=== PATIENT | male | born 1975 | race Caucasian/White ===

== ENCOUNTER 2019-04-30 02:28 | Emergency (ER) | payer SELFPAY ==
[~2019-04-30] VITALS: Ht 170.2 cm; Wt 98.7 kg
[~2019-04-30 02:28] MED LIST: CEPH500C PO; IBUP-1542 PO; IBUP800T48 PO
[2019-04-30 02:35] VITALS: Ht 170.2 cm; Wt 98.7 kg
--- NOTE | 2019-04-30 03:58 | ERD ---
ER Documentation Chief Complaint Chief Complaint ABSCESS ON BACK OF HEAD HPI This is a 43 yo male patient who presents to the ER with c/o large abscess on back of head that he has tried to karley at home and has only gotten larger. No fevers, no neck pain, no other symptoms. No chronic medical problems. ROS All systems reviewed and are negative except as per history of present illness. Medications Home Meds Active Scripts Ibuprofen* (Motrin*) 600 Mg Tab, 600 MG PO Q6, #30 TAB Prov:APPLE MARTINEZ [employer] REPORTER 04/30/19 Cephalexin* (Cephalexin*) 500 Mg Capsule, 500 MG PO Q6 for cellulitis for 7 Days, #28 CAP Prov:APPLE MARTINEZ [facility] REPORTER 04/30/19 Ibuprofen* (Motrin*) 800 Mg Tab, 800 MG PO Q8 PRN for PAIN AND OR ELEVATED TEMP, #30 TAB Prov:SHERRY ROBISON [facility] REPORTER 03/24/16 Allergies Allergies: Coded Allergies: No Known Allergy (Unverified , 03/23/16) PMhx/Soc Medical and Surgical Hx: pt denies Surgical Hx History of Surgery: No Anesthesia Reaction: No Hx Neurological Disorder: No Hx Respiratory Disorders: No Hx Cardiac Disorders: No Hx Psychiatric Problems: No Hx Miscellaneous Medical Probl: Yes (DM) Hx Alcohol Use: No Hx Substance Use: No Hx Tobacco Use: Yes Smoking Status: Current every day smoker FmHx Family History: No diabetes, No coronary disease, No other Physical Exam Vitals Vital Signs Date Temp Pulse Resp B/P (MAP) Pulse Ox O2 O2 Flow FiO2 Time Delivery Rate 04/30/19 95.8 71 16 144/91 98 Room Air 05:57 (108) 04/30/19 98.7 80 19 154/100 99 02:35 (118) Physical Exam Const: No acute distress Head: Atraumatic Eyes: Normal Conjunctiva, PERRL ENT: Normal External Ears, Nose and Mouth. Neck: Full range of motion. No meningismus. +carbuncle 6cm x 4cm, +induration, +erythema, +fluctuance, +tender Resp: Clear to auscultation bilaterally Cardio: Regular rate and rhythm, no murmurs Abd: Soft, non tender, non distended. Normal bowel sounds Neur: Awake and alert, CN II-XII intact Psych: Normal Mood and Affect Results 24 hrs Current Medications Medications Dose Sig/Brenda Start Time Status Last (Trade) Ordered Route PRN Stop Time Admin Dose Reason Admin Ibuprofen 600 mg ONCE ONCE 04/30/19 DC 04/30/19 (Motrin) PO 04:00 04:06 04/30/19 04:01 Procedures/MDM PROCEDURES/MDM PROCEDURES: Abscess Incision and Drainage with irrigation by me: Location: back of neck Anesthesia: Local 1% Lidocaine Technique: Irrigated. Disrupted loculations w/ instrumentation Packing: None Complications: Neurovascularly intact post procedure Scant purulent drainage. 48 hour wound check. Scar minimization instructions given. -Medications: Ibuprofen Patient tolerated medication well with no adverse reactions. Patient reported improvement in pain. -Consultation: Dr. Alcantar MDM: This patients soft tissue infection appears to be appropriate for outpatient treatment with close follow-up for reevaluation by a clinician within 24-48 hours. A serious, rapidly progressive infectious process is unlikely based upon the patients presentation and appearance of the infection. Antibiotic treatment has been initiated here and response to treatment will be based on reassessment at close follow-up. The patient has been instructed on signs and symptoms of acute progression of infection and to return immediately if any of these occur. DISPOSITION and PLAN: RX:Keflex, Ibuprofen The patient has been discharge home to follow-up with community physician. Departure Diagnosis: Primary Impression: Acute abscess Condition: Stable APPLE MARTINEZ NP Apr 30, 2019 03:58
[2019-04-30] MEDS ORDERED: IBUPROFEN 600 MG TAB PO ONE (04:00)
[2019-04-30 05:57] VITALS: BP 144/91; PULSE 71; RESP 16
== END 2019-04-30 05:56 | disposition home or self-care (01) ==
LOC: FTE 02:28
DX: L02.11 Cutaneous abscess of neck (principal); E11.9 Type 2 diabetes mellitus without complications; F17.210 Nicotine dependence, cigarettes, uncomplicated